=== PATIENT | female | born 1975 | race Caucasian/White ===

== ENCOUNTER → 2018-03-16 | Outpatient (CLI) | payer OTHER ==
--- NOTE | 2018-03-17 14:03 | MM ---
Reason for exam: screening (asymptomatic). Last mammogram was performed 5 years and 5 months ago. History: Patient is postmenopausal and history of endometrial cancer. Family history of breast cancer in maternal aunt, breast cancer in maternal grandmother, breast cancer in grandmother, and breast cancer in paternal aunt. Physical Findings: A clinical breast exam by your physician is recommended on an annual basis and results should be correlated with mammographic findings. MG Screening Mammo w CAD Bilateral CC and MLO view(s) were taken. Prior study comparison: October 21, 2012, bilateral digital screening mammo w/CAD. February 06, 2005, left breast special view mammogram. The breast tissue is heterogeneously dense. This may lower the sensitivity of mammography. Finding #1: There is a new 8 mm circumscribed oval mass in the outer quadrant, middle position of the left breast. Finding #2: There are typically benign round, regional calcifications in the right breast. ASSESSMENT: Incomplete: need additional imaging evaluation, BI-RAD 0 RECOMMENDATION: Ultrasound of the left breast. [facility] will attempt to contact patient to return for ultrasound.
== END | disposition home or self-care (01) ==
LOC: RADMAMWWP 13:40
PROVIDERS: ATTEND Family Medicine
DX: Z12.31 Encounter for screening mammogram for malignant neoplasm of breast (principal)
CPT/HCPCS: 77067

== ENCOUNTER → 2018-03-26 | Outpatient (CLI) | payer OTHER ==
--- NOTE | 2018-03-29 09:15 | USB ---
Reason for exam: additional evaluation requested from abnormal screening. History: Patient is postmenopausal and history of endometrial cancer. Family history of breast cancer in maternal aunt, breast cancer in maternal grandmother, breast cancer in grandmother, and breast cancer in paternal aunt. Physical Findings: Nurse Summary: areas of nodular tissue left upper outer quadrat, bilateral soft, nodular tissue, all movable (nurse ts). US Breast Workup Limited LT Technologist: Janice Quick RT (R)(M) Left limited breast ultrasound including focal area of concern, retroareolar and axilla demonstrates three oval, cystic lesions measuring 9 x 6 x 10mm at 1 o'clock, 13 x 9 x 6mm at 4 o'clock and 10 x 7 x 9mm at 2 o'clock. These results were verbally communicated with the patient and result sheet given to the patient on 03/26/18. ASSESSMENT: Benign, BI-RAD 2 RECOMMENDATION: Return to routine screening mammogram schedule for both breasts.
== END | disposition home or self-care (01) ==
LOC: RADUSWWP 08:47
PROVIDERS: ATTEND Family Medicine
DX: R92.8 Other abnormal and inconclusive findings on diagnostic imaging of breast (principal)

== ENCOUNTER 2021-11-15 09:30 | Emergency (ER) | payer OTHER ==
[2021-11-15] MEDS: MAG HYDROX/AL HYDROX/SIMETH 30 ML, HYOSCYAMINE ELIXIR 10 ML, LIDOCAINE VISCOUS 2% 10 ML PO STA ×3 (10:33)
[2021-11-15] MEDS: PANTOPRAZOLE 40 MG/10 ML VIAL IVP STA (10:33)
--- NOTE | 2021-11-15 10:34 | XR ---
EXAMINATION TYPE: XR chest 2V DATE OF EXAM: 11/15/2021 COMPARISON: NONE HISTORY: Chest pain TECHNIQUE: Frontal and lateral views of the chest are obtained. FINDINGS: There is no focal air space opacity. No evidence for pneumothorax. No pleural effusion. The cardiac silhouette size is within normal limits. The osseous structures are grossly intact. IMPRESSION: 1. No acute cardiopulmonary process.
[2021-11-15] MEDS: SODIUM CHLORIDE 0.9% 1,000 ML IV STA (10:37)
--- NOTE | 2021-11-15 10:46 | ED ---
Chest Pain HPI - General Chief Complaint: Chest Pain Stated Complaint: Chest Pain Source: patient Mode of arrival: ambulatory Limitations: no limitations - History of Present Illness Initial Comments: 6-year-old female presents emergency department reported chest pressure. He describes it as a pain over the left side of her chest which has been present since last night. Denies any provocative factors. Concern that it was gas therefore has been taking Tums without relief. Denies previous history of cardiac disease. No history of DVT or PE. No calf pain or swelling. No s ignificant family of cardiac disease. Patient is no longer a smoker. She denies ripping or tearing physician to her back. No nausea or vomiting. No shortness of breath. Denies fevers or cough. Denies any abdominal pain. No changes in her bowel or bladder habits. Reports that she was having some right anterior knee pain and therefore was taking Aleve and Motrin in heavy amounts last week. Has subsequently stopped and is no longer having the leg pain. No other alleviating, precipitating or modifying factors - Related Data Home Medications Medication Instructions Recorded Confirmed Sertraline HCl [Zoloft] 200 mg PO HS 05/06/18 11/15/21 Acetaminophen Tab [Tylenol Tab] 1,000 mg PO Q6HR PRN 11/15/21 11/15/21 Calcium Carbonate [Tums] 1,000 mg PO QID PRN 11/15/21 11/15/21 Ibuprofen [Advil] 400 mg PO Q8HR PRN 11/15/21 11/15/21 Naproxen Sodium [Aleve] 440 mg PO Q12H PRN 11/15/21 11/15/21 Polyethylene Glycol 3350 [Miralax] 17 gm PO DAILY PRN 11/15/21 11/15/21 buPROPion HCL [Wellbutrin XL] 300 mg PO HS 11/15/21 11/15/21 Previous Rx's Medication Instructions Recorded Famotidine [Pepcid] 20 mg PO BID #28 tablet 11/15/21 Omeprazole [PriLOSEC] 20 mg PO AC-BRKFST #14 cap 11/15/21 Sucralfate [Carafate] 1 gm PO ACHS #56 tab 11/15/21 Allergies Allergy/AdvReac Type Severity Reaction Status Date / Time sumatriptan [From Imitrex] Allergy Dyspnea Verified 11/15/21 10:48 sumatriptan succinate Allergy Dyspnea Verified 11/15/21 10:48 [From Imitrex] Review of Systems ROS Statement: Those systems with pertinent positive or pertinent negative responses have been documented in the HPI. ROS Other: All systems not noted in ROS Statement are negative. EKG Findings - EKG Comments: EKG Findings:: EKG demonstrates sinus rhythm with a rate of 74. Irritable 150. QRS 92. QTC of 336. No acute ST segment elevations or depressions Past Medical History Past Medical History: Cancer, Hyperlipidemia Additional Past Medical History / Comment(s): cervical cancer at 16, skin cancer found on back April 2018 History of Any Multi-Drug Resistant Organisms: None Reported Past Surgical History: Section, Hysterectomy, Orthopedic Surgery Additional Past Surgical History / Comment(s): OVARIES REMOVED, surgery on both ankles Past Anesthesia/Blood Transfusion Reactions: Postoperative Nausea & Vomiting (PONV) Past Psychological History: No Psychological Hx Reported Smoking Status: Never smoker Past Alcohol Use History: None Reported Past Drug Use History: None Reported - Past Family History Father Family Medical History: No Reported History Mother Family Medical History: Skin Disorder Additional Family Medical History / Comment(s): skin cancer (on face) General Exam Limitations: no limitations General appearance: alert, in no apparent distress Head exam: Present: atraumatic, normocephalic, normal inspection Eye exam: Present: normal appearance, PERRL, EOMI. Absent: scleral icterus, conjunctival injection, periorbital swelling ENT exam: Present: normal exam, mucous membranes moist Neck exam: Present: normal inspection. Absent: tenderness, meningismus, lymphadenopathy Respiratory exam: Present: normal lung sounds bilaterally. Absent: respiratory distress, wheezes, rales, rhonchi, stridor Cardiovascular Exam: Present: regular rate, normal rhythm, normal heart sounds. Absent: systolic murmur, diastolic murmur, rubs, gallop, clicks GI/Abdominal exam: Present: soft, normal bowel sounds. Absent: distended, tenderness, guarding, rebound, rigid Extremities exam: Present: normal inspection, full ROM, normal capillary refill. Absent: tenderness, pedal edema, joint swelling, calf tenderness Back exam: Present: normal inspection Neurological exam: Present: alert, oriented X3, CN II-XII intact Psychiatric exam: Present: normal affect, normal mood Skin exam: Present: warm, dry, intact, normal color. Absent: rash Course Vital Signs 11/15/21 11/15/21 11/15/21 09:32 10:37 11:43 Temperature 98.1 F 98.6 F Pulse Rate 79 72 67 Respiratory 18 18 16 Rate Blood Pressure 141/84 131/85 131/81 O2 Sat by Pulse 98 97 98 Oximetry 11/15/21 12:41 Temperature 98.6 F Pulse Rate 73 Respiratory 18 Rate Blood Pressure 133/84 O2 Sat by Pulse 98 Oximetry Chest Pain MDM - MDM Upon arrival patient is placed into room 5. A thorough history and physical exam was performed. Patient placed on continuous pulse ox and cardiac monitoring. 12-lead EKG is obtained which demonstrates no acute ST segment elevation. IV is established and laboratory studies are conducted. Patient does go for a chest x-ray. Review of the patient's labs demonstrated a negative d-dimer. Troponin is negative. Chest x-ray demonstrates no acute process. Results are discussed the patient. She was given a GI cocktail and Protonix. She continues to have epigastric pain and therefore I did recommend admission for further cardiac workup. Patient refused stating that she wanted to go home. She is aware of the risks of leaving without further evaluation. The limitations of the ER work up are discussed. Patient's adamant that she wants to go home. Will follow-up in the outpatient setting for further evaluation. Do believe that the patient needs a full cardiac workup to include Holter monitor, stress test and an echo. Would also benefit from GI consultation with possible EGD and HIDA scan. Patient understood. If she has any new or worsening symptoms recommended to come back to the emergency room. Patient discharged home in stable condition Disposition Clinical Impression: Chest pain Disposition: HOME SELF-CARE Condition: Stable Instructions (If sedation given, give patient instructions): Chest Pain (ED) Additional Instructions: I did recommend admission. You do need a further cardiac workup to include an echo, stress test and Holter monitoring. [facility] for [facility]. I also think you need further workup of your GI tract to include an EGD and possible HIDA scan. You may see Dr. Ruiz for these concerns. Take the medications prescribed as directed and please return to the hospital for any new or worsening symptoms or you do agree to admission. Prescriptions: Sucralfate [Carafate] 1 gm PO ACHS #56 tab Famotidine [Pepcid] 20 mg PO BID #28 tablet Omeprazole [PriLOSEC] 20 mg PO AC-BRKFST #14 cap Is patient prescribed a controlled substance at d/c from ED?: No Referrals: Gordo Carmen DO [Primary Care Provider] - 1-2 days Brenda Ruiz MD [STAFF PHYSICIAN] - 1-2 days [facility] [Provider Group] - 1-2 days Time of Disposition: 12:19
[2021-11-15 11:06] LABS: ALT 16 U/L (4-34); AST 21 U/L (14-36); African American GFR (CKD) >90 (>60 ml/min/1.73 sqM); Albumin 4.6 g/dL (3.5-5.0); Alkaline Phosphatase 67 U/L (38-126); Anion Gap 10 mmol/L; Blood Urea Nitrogen 15 mg/dL (7-17); Calcium 9.9 mg/dL (8.4-10.2); Carbon Dioxide 21 mmol/L (22-30); Chloride 104 mmol/L (98-107); Glucose 96 mg/dL (74-99); Lipase 89 U/L (23-300); Magnesium 1.9 mg/dL (1.6-2.3); Non-African American GFR(CKD) >90 (>60 ml/min/1.73 sqM); Potassium 4.3 mmol/L (3.5-5.1); Sodium 135 mmol/L (137-145); Total Bilirubin 0.6 mg/dL (0.2-1.3); Total Protein 7.6 g/dL (6.3-8.2)
[2021-11-15 11:08] LABS: Basophils # (A) 0.1 k/uL (0-0.2); Basophils % (A) 1 %; Eosinophils # (A) 0.1 k/uL (0-0.7); Eosinophils % (A) 1 %; HCT 42.2 % (34.0-46.0); HGB 14.4 gm/dL (11.4-16.0); Lymphocytes # (A) 1.9 k/uL (1.0-4.8); Lymphocytes % (A) 19 %; MCH 30.9 pg (25.0-35.0); MCHC 34.2 g/dL (31.0-37.0); MCV 90.2 fL (80.0-100.0); Mean Platelet Volume 7.5; Monocytes # (A) 0.4 k/uL (0-1.0); Monocytes % (A) 4 %; Neutrophils # (A) 7.7 k/uL (1.3-7.7); Neutrophils % (A) 75 %; Platelet Count 370 k/uL (150-450); RBC 4.67 m/uL (3.80-5.40); RDW 12.7 % (11.5-15.5); WBC 10.2 k/uL (3.8-10.6)
[2021-11-15 11:10] LABS: INR 0.9 (<1.2)
[2021-11-15 11:11] LABS: Partial Thromboplastin Time 23.3 sec (22.0-30.0); Prothrombin Time 10.1 sec (9.0-12.0)
[2021-11-15 11:49] VITALS: TEMP 98.6
[2021-11-15 12:49] VITALS: BP 133/84; PULSE 73; RESP 18
== END 2021-11-15 12:41 | disposition home or self-care (01) ==
LOC: EC 09:30
DX: R07.9 Chest pain, unspecified (principal); E78.5 Hyperlipidemia, unspecified
CPT/HCPCS: 36415; 93005; 85379; 80053; 83690; 83735; 84484; 85025; 85610; 85730; 71046; 99285; 96374; 96361; C9113

== ENCOUNTER 2021-12-03 08:16 | Day surgery (SDC) | payer OTHER ==
[2021-11-29 12:33] VITALS: BMI 26.9
[~2021-12-03 08:16] MED LIST: LACTATED RINGERS 1,000 ML IV SCH
[2021-12-03 09:05] VITALS: TEMP 98.7
[2021-12-03] MEDS ORDERED: LIDOCAINE 1% INJ 10MG/ML (20 ML MDV) ONE (10:16)
[2021-12-03] MEDS ORDERED: PROPOFOL 10 MG/ML 20 ML VIAL IV ONE (10:16)
--- NOTE | 2021-12-03 10:22 | P.PCN ---
Date of Procedure: 12/03/21 Procedure(s) Performed: BRIEF HISTORY: Patient is a 46-year-old, pleasant, to female scheduled for an upper endoscopy as a part of evaluation of atypical chest pain for the last few weeks duration.. She is presently on omeprazole 20 mg twice daily and Pepcid at bedtime and symptoms are gradually improving. PROCEDURE PERFORMED: Esophagogastroduodenoscopy with biopsy. PREOPERATIVE DIAGNOSIS:. Atypical chest pain of 2 weeks duration. IV sedation per anesthesia. PROCEDURE: After informed consent was obtained, the patient was brought into the endoscopy unit. IV sedation was administered by Anesthesia under continuous monitoring. Initially the Olympus GIF-140 video endoscope was inserted into the mouth. Esophagus intubated without any difficulty. It was gradually advanced into the stomach and duodenum and carefully examined. The bulb and the second part of the duodenum appeared normal. The scope at this time was withdrawn to the stomach, adequately insufflated with air, and upon careful examination, mucosa of the antrum, had several scattered erosions and biopsies were done from this area. The body, cardia and the fundus appeared normal. The scope was then withdrawn into the esophagus. The GE junction was located at 39 cm from the incisors. It appeared slightly irregular but there was no evidence of Burton's esophagus. The esophagus appeared normal. There were no erosions or ulcerations seen and biopsies were done from the distal esophagus and the patient tolerated the procedure well. IMPRESSION: 1. Antral erosive gastritis. 2. No evidence of esophagitis or peptic ulcer disease. RECOMMENDATIONS: The findings of this examination were discussed with the patient as well as her family. She was advised to follow with the biopsy results. In the meantime she will continue with omeprazole 20 mg twice daily and Pepcid at bedtime and follow antireflux measures..
[2021-12-03] MEDS ORDERED: FAMOTIDINE 20 MG/2 ML VIAL IVP ONE (10:59)
[2021-12-03 11:20] VITALS: BP 117/72; PULSE 64; RESP 18
== END 2021-12-03 11:36 | disposition home or self-care (01) ==
LOC: ORWHC2ENDO 08:16
PROVIDERS: ATTEND Internal Medicine Gastroenterology
DX: K29.50 Unspecified chronic gastritis without bleeding (principal); K29.60 Other gastritis without bleeding; Z79.1 Long term (current) use of non-steroidal anti-inflammatories (NSAID); Z79.899 Other long term (current) drug therapy; Z88.8 Allergy status to other drugs, medicaments and biological substances; Z87.891 Personal history of nicotine dependence; E78.5 Hyperlipidemia, unspecified; G43.909 Migraine, unspecified, not intractable, without status migrainosus; K21.9 Gastro-esophageal reflux disease without esophagitis; Z90.710 Acquired absence of both cervix and uterus; Z85.41 Personal history of malignant neoplasm of cervix uteri
CPT/HCPCS: 88305; 88342; 43239; J2001; J2704

== ENCOUNTER → 2022-01-06 | Outpatient (CLI) | payer OTHER ==
--- NOTE | 2022-01-06 11:15 | P.STRESS ---
- Stress Test Note Stress Test Results/Findings: Exam Performed: stress echo exercise Exam Date: 01/06/22 Reason for Exam: Chest pain Height: 6 ft Weight: 90.718 kg Protocol: Rod Stage: III Duration of Exercise: 8:28 Resting Heart Rate: 74 Resting Blood Pressure: 146/88 Maximum Achieved Heart Rate: 149 Maximum Achieved Blood Pressure: 204/68 85% PMHR: 147 100% PMHR: 173 METS: 9.7 Technologist Comment: Stress Test Results/Findings: This is a 46-year-old female with history of smoking and hypercholesterolemia being evaluated for cardiac status. Patient has history of chest pain, hypercholesterolemia and smoking Stress data: Baseline EKG showed sinus rhythm with normal CO and QRS duration. Blood pressure at rest is 145/88. Patient walked on the Rod protocol for about 7 minutes achieving a maximal rate of 149 with a blood pressure of 204/68. EKGs taken during and after exercise showed mild J-point depression with upsloping segments in the inferolateral leads which are not diagnostic for ischemia. Echo data: Baseline echo images show normal wall motion and thickening. Exercise echo images showed augmentation of the wall motion and thickening in all the segments. Final impression: #1. Negative stress test #2. Negative stress echo.
--- NOTE | 2022-01-08 08:40 | ECHOS ---
Stress Test Results/Findings: Exam Performed: stress echo exercise Exam Date: 01/06/22 Reason for Exam: Chest pain Height: 6 ft Weight: 90.718 kg Protocol: Rod Stage: III Duration of Exercise: 8:28 Resting Heart Rate: 74 Resting Blood Pressure: 146/88 Maximum Achieved Heart Rate: 149 Maximum Achieved Blood Pressure: 204/68 85% PMHR: 147 100% PMHR: 173 METS: 9.7 Technologist Comment: Stress Test Results/Findings: This is a 46-year-old female with history of smoking and hypercholesterolemia being evaluated for cardiac status. Patient has history of chest pain, hypercholesterolemia and smoking Stress data: Baseline EKG showed sinus rhythm with normal MO and QRS duration. Blood pressure at rest is 145/88. Patient walked on the Rod protocol for about 7 minutes achieving a maximal rate of 149 with a blood pressure of 204/68. EKGs taken during and after exercise showed mild J-point depression with upsloping segments in the inferolateral leads which are not diagnostic for ischemia. Echo data: Baseline echo images show normal wall motion and thickening. Exercise echo images showed augmentation of the wall motion and thickening in all the segments. Final impression: #1. Negative stress test #2. Negative stress echo. SANDRA
== END | disposition home or self-care (01) ==
LOC: RADNMMAIN 09:36
PROVIDERS: ATTEND Family Medicine
DX: R07.89 Other chest pain (principal)
CPT/HCPCS: 93351

== ENCOUNTER 2023-01-09 22:12 | Emergency (ER) | payer OTHER ==
[2023-01-09] MEDS ORDERED: levETIRAcetam IV 2,000 MG in SODIUM CHLORIDE 0.9% 250 ML IVPB ONE (22:20)
[2023-01-09 22:25] VITALS: TEMP 96.9
[2023-01-09 22:29] LABS: Glucose,Whole Blood 173 mg/dL (70-110)
[2023-01-09] MEDS ORDERED: niCARdipine 20 MG in SODIUM CHLORIDE 0.9% 192 ML IV SCH (22:30)
--- NOTE | 2023-01-09 22:30 | ED ---
General Adult HPI - General Stated complaint: Stroke-like symptoms, Seizure Time Seen by Provider: 01/09/23 22:18 Source: EMS, RN notes reviewed, old records reviewed Mode of arrival: EMS - History of Present Illness Initial comments: Patient is a 47-year-old female with past medical history remarkable for cervical cancer at age 16, history of migraine headaches who presents emergency Department via EMS over concern for stroke. Earlier today per EMS who provides all the patient's history patient was having the worst headache of her life. They obtained history from the patient's . She is complaining of this worst headache of her life throughout the day. Presently 30 minutes prior to arrival in the emergency department, patient fell onto the ground in the bathroom. She was having slurred and jumbled speech per . Also had some weakness on the right side. When EMS arrived, patient was having generalized tonic-clonic movements present seizure. Since that time, patient has been somewhat lethargic. She rises to minimal stimulation. Is not moving her right upper extremity. Does have movement of the other 3 extremities but is unable to follow commands. No usable speech. Presents for further evaluation at this time. Not on blood thinners. No known trauma. - Related Data Home Medications Medication Instructions Recorded Confirmed Sertraline HCl [Zoloft] 200 mg PO HS 05/06/18 12/03/21 Acetaminophen Tab [Tylenol Tab] 1,000 mg PO Q6HR PRN 11/15/21 12/03/21 Ibuprofen [Advil] 400 mg PO Q8HR PRN 11/15/21 12/03/21 Naproxen Sodium [Aleve] 440 mg PO Q12H PRN 11/15/21 12/03/21 buPROPion HCL [Wellbutrin XL] 300 mg PO HS 11/15/21 12/03/21 polyethylene glycoL 3350 [Miralax] 17 gm PO DAILY PRN 11/15/21 12/03/21 Famotidine [Pepcid] 20 mg PO HS 11/29/21 12/03/21 Previous Rx's Medication Instructions Recorded Omeprazole [PriLOSEC] 20 mg PO AC-BRKFST #14 cap 11/15/21 Sucralfate [Carafate] 1 gm PO ACHS #56 tab 11/15/21 Allergies Allergy/AdvReac Type Severity Reaction Status Date / Time sumatriptan [From Imitrex] Allergy Dyspnea Verified 12/03/21 08:57 sumatriptan succinate Allergy Dyspnea Verified 12/03/21 08:57 [From Imitrex] Review of Systems ROS Statement: Those systems with pertinent positive or pertinent negative responses have been documented in the HPI. ROS Other: All systems not noted in ROS Statement are negative. Past Medical History Past Medical History: Cancer, Hyperlipidemia, Osteoarthritis (OA) Additional Past Medical History / Comment(s): cervical cancer at 16, migraine headaches, skin cancer on back, pain in throat/upper chest area for about a week, seen in EC, no cardiac problem found per pt. History of Any Multi-Drug Resistant Organisms: None Reported Past Surgical History: Section, Hysterectomy, Orthopedic Surgery Additional Past Surgical History / Comment(s): OVARIES REMOVED, surgery on both ankles Past Anesthesia/Blood Transfusion Reactions: Motion Sickness, Postoperative Nausea & Vomiting (PONV) Smoking Status: Former smoker - Past Family History Father Family Medical History: No Reported History Mother Family Medical History: Skin Disorder Additional Family Medical History / Comment(s): skin cancer (on face) General Exam - General Exam Comments Initial Comments: General: Patient is lying in the bed, collecting spit at the mouth looking around the room confused. HEAD: Normal with no signs of head trauma. EYES: PERRLA, EOMI, conjunctiva normal, no discharge. Pupils 3 mm and equal bilaterally. ENT: Hearing grossly intact, normal oropharynx. RESPIRATORY: Clear breath sounds bilaterally. No wheezes, rales, or rhonchi. C/V: Regular rate and rhythm. S1 and S2 auscultated, no edema, peripheral pulses 2+ and intact throughout ABD: Abd is soft, nontender, nondistended EXT: Normal range of motion, no obvious deformity SKIN: No rashes or lesions observed on exposed skin. NEURO: Alert but not oriented. Difficult to obtain a reliable neurological exam at this time. NIH is approximately 13 at this time, with 2 points for being mute for dysarthria, 2 points for being mute for aphasia, ataxia in the right upper extremity one point, no movement in the right upper extremity for 4 points, aphasic for a month and age 1, arouses to minor stimulation for 1 point. Course Vital Signs 04/21/23 04/21/23 04/21/23 22:14 22:57 23:13 Temperature 96.9 F L Pulse Rate 68 94 Respiratory 15 14 Rate Blood Pressure 132/85 142/95 O2 Sat by Pulse 96 95 Oximetry Fraction of 100 Inspired Oxygen (FIO2) 01/09/23 01/09/23 01/10/23 23:15 23:38 00:05 Temperature Pulse Rate 71 69 67 Respiratory 16 16 20 Rate Blood Pressure 142/88 158/84 143/78 O2 Sat by Pulse 99 97 97 Oximetry Fraction of Inspired Oxygen (FIO2) 01/10/23 01/10/23 00:15 00:43 Temperature Pulse Rate 71 73 Respiratory 16 16 Rate Blood Pressure 122/66 137/80 O2 Sat by Pulse 96 98 Oximetry Fraction of Inspired Oxygen (FIO2) Procedures - Intubation Sedative: Etomidate Mg Given: 30 Paralytic: Rocuronium Mg Given: 60 Laryngoscope: other (Glidescope) Size: 4 ET Tube Size: 7.5 Tube Secured Depth (cm): 23 Tube Secured Location: lips Tube Placement Confirmation: visualized tube passing through cords, equal breath sounds bilaterally, confirmation by capnometry Patient Tolerated Procedure: well Medical Decision Making - Medical Decision Making Was pt. sent in by a medical professional or institution (Dr. PA, CONVEYOR MAINTENANCE MECHANIC, urgent care, hospital, or shelter...) When possible be specific @ -No Did you speak to anyone other than the patient for history (EMS, parent, family, police, friend...)? What history was obtained from this source @ -No Did you review nursing and triage notes (agree or disagree)? Why? @ -I reviewed and agree with nursing and triage notes Were old charts reviewed (outside hosp., previous admission, EMS record, old EKG, old radiological studies, urgent care reports/EKG's, shelter records)? Report findings @ -No old charts were reviewed Differential Diagnosis (chest pain, altered mental status, abdominal pain women, abdominal pain men, vaginal bleeding, weakness, fever, dyspnea, syncope, headache, dizziness, GI bleed, back pain, seizure, CVA, palpatations, mental health, musculoskeletal)? @ -Differential CVA Ischemic stroke, hemorrhagic stroke, brain tumor, atypical migraine, Wernicke's encephalopathy, seizure, multiple sclerosis, meningitis, encephalitis, hypoglycemia, Guillain-Cervantes, electrolytes disturbance, myasthenia gravis.... This is not meant to be an all-inclusive list EKG interpreted by me (3pts min.). @ -As above X-rays interpreted by me (1pt min.). @ -Chest x-ray reveals no obvious acute cardio pulmonary process CT interpreted by me (1pt min.). @ -CT brain reveals a significant left intraparenchymal hemorrhage. CT angiogram of the brain is pending. U/S interpreted by me (1pt. min.). @ -None done What testing was considered but not performed or refused? (CT, X-rays, U/S, labs)? Why? @ -None What meds were considered but not given or refused? Why? @ -None Did you discuss the management of the patient with other professionals (professionals i.e. , PA, CONVEYOR MAINTENANCE MECHANIC, lab, RT, psych nurse, social science manager, planer mill grader, teacher, classification officer, embedded case manager)? Give summary @ -No Was smoking cessation discussed for >3mins.? @ -No Was critical care preformed (if so, how long)? @ -No Were there social determinants of health that impacted care today? How? (Homelessness, low income, unemployed, alcoholism, drug addiction, tra nsportation, low edu. Level, literacy, decrease access to med. care, [facility], rehab)? @ -No Was there de-escalation of care discussed even if they declined (Discuss DNR or withdrawal of care, Hospice)? DNR status @ -No What co-morbidities impacted this encounter? (DM, HTN, Smoking, COPD, CAD, Cancer, CVA, ARF, Chemo, Hep., AIDS, mental health diagnosis, sleep apnea, morbid obesity)? @ -None Was patient admitted / discharged? Hospital course, mention meds given and route, prescriptions, significant lab abnormalities, going to OR and other pertinent info. @ -Based on the patient's presentation and physical exam, there is concern for a significant panel process for the patient this time. She is protecting her airway. Vital signs within acceptable limits. Code stroke will be activated at 22:20. She is not a TPA candidate she did have seizure-like activity and I do suspect a brain bleed at this time. Patient is a suspected stroke. . Patient empirically dosed 2 g of IV Keppra. HOB will be maintained at 30. CT brain reveals a large left intraparenchymal hemorrhage with what appears to be 8 mm midline shift. At 22:34 Dr. Barrera of neurocrit care called back and stated he will review imaging and call back. Patient's blood pressure is adequate at this time but we will empirically order Cardene, as well as provide the patient with 50 g of IV mannitol due to the midline shift. Patient also receive TXA. Patient pending transfer. Patient successfully intubated for airway protection with Glyde scope with 7.5 ET tube. An NG tube was placed. Patient placed on propofol drip for sedation as well as secondary blood pressure control. Vital signs postintubation were pressure 142/88, saturating 99% on baseline vent settings, with pulses 71. Post intubation chest x-ray reveals adequate placement of a OG-tube as well as ET tube. Patient in total received IV mannitol for the shift 50 g total. Patient also received IV TXA will be started on IV drip of TXA. Patient is on propofol drip for sedation blood pressure control. Also will be sent with a Cardene drip for blood pressure control. Patient also received IV Keppra for seizure prophy laxis. Blood pressure is well-controlled at this time. Awaiting transfer.Patient's laboratory studies returned remarkable for normal coags. Leukocytosis mild at 12.9. Indeterminate troponin of 0.020. Mcdowell catheter was placed. CT angiogram revealed no evidence of stenosis or aneurysm. I did speak with radiology ablates is likely hypertensive bleed. Dr. Barrera called back at 2308, and he reviewed the CT angiogram requested patient be transferred to [facility] for further management. No aneurysm for him to intervene at [facility]. Patient be transferred to [facility]. Transfer process was initiated with [facility] at 2311. Patient was accepted at approximately [address] Montelongo in the emergency department. Patient will be transferred in critical condition. EMS was I did speak with the patient's and updated him on the patient's critical condition. He does express understanding. No significant mental status change since intubation. There was a long delay in transfer process, as it did take EMS longer than originally planned to arrive at the emergency department to the original ETA of approximately 30 minutes after phone call for arrival at our facility at approximately midnight. This is despite us pre-notifying them of the pending transfer at 22:44. When they did arrive after midnight, as they were about to put the patient on the stretcher, patient became more agitated, and the EMS were requesting additional sedation in addition to the propofol. Therefore fentanyl drip and fentanyl push were both ordered at 0009 but this did take time to obtain from pharmacy as well, contributing to the delay overall in transferring the patient. Undiagnosed new problem with uncertain prognosis? @ -No Drug Therapy requiring intensive monitoring for toxicity (Heparin, Nitro, Insulin, Cardizem)? @ -No Were any procedures done? @ -No Diagnosis/symptom? @ -Acute intracranial hemorrhage with midline shift Acute, or Chronic, or Acute on Chronic? @ -Acute Uncomplicated (without systemic symptoms) or Complicated (systemic symptoms)? @ -Complicated Side effects of treatment? @ -none Exacerbation, Progression, or Severe Exacerbation] @ -no Poses a threat to life or bodily function? @ -Yes Diagnosis/symptom? @ -Intubation for airway protection Acute, or Chronic, or Acute on Chronic? @ -Acute Uncomplicated (without systemic symptoms) or Complicated (systemic symptoms)? @ -Complicated Side effects of treatment? @ -[none] Exacerbation, Progression, or Severe Exacerbation] @ -[no] Poses a threat to life or bodily function? @ -[no] - Lab Data Result diagrams: 01/09/23 22:25 01/09/23 22:25 Lab Results 01/09/23 01/09/23 01/09/23 Range/Units 22:17 22:25 22:25 WBC 12.9 H (3.8-10.6) k/uL RBC 4.58 (3.80-5.40) m/uL Hgb 13.4 (11.4-16.0) gm/dL Hct 40.8 (34.0-46.0) % MCV 89.1 (80.0-100.0) fL MCH 29.3 (25.0-35.0) pg MCHC 32.9 (31.0-37.0) g/dL RDW 13.0 (11.5-15.5) % Plt Count 399 (150-450) k/uL MPV 7.4 Neutrophils % 76 % Lymphocytes % 18 % Monocytes % 4 % Eosinophils % 1 % Basophils % 0 % Neutrophils # 9.9 H (1.3-7.7) k/uL Lymphocytes # 2.3 (1.0-4.8) k/uL Monocytes # 0.5 (0-1.0) k/uL Eosinophils # 0.1 (0-0.7) k/uL Basophils # 0.0 (0-0.2) k/uL PT 10.0 (9.0-12.0) sec INR 0.9 (<1.2) APTT 21.4 L (22.0-30.0) sec Sodium (137-145) mmol/L Potassium (3.5-5.1) mmol/L Chloride (98-107) mmol/L Carbon Dioxide (22-30) mmol/L Anion Gap mmol/L BUN (7-17) mg/dL Creatinine (0.52-1.04) mg/dL Est GFR (CKD-EPI)AfAm (>60 ml/min/1.73 sqM) Est GFR (CKD-EPI)NonAf (>60 ml/min/1.73 sqM) Glucose (74-99) mg/dL POC Glucose (mg/dL) 173 H (70-110) mg/dL POC Glu Sql Server Architect ID Andrade Holm Plasma Lactic Acid Mani (0.7-2.0) mmol/L Calcium (8.4-10.2) mg/dL Total Bilirubin (0.2-1.3) mg/dL AST (14-36) U/L ALT (4-34) U/L Alkaline Phosphatase (38-126) U/L Ammonia (<30) umol/L Creatine Kinase (30-135) U/L Troponin I (0.000-0.034) ng/mL Total Protein (6.3-8.2) g/dL Albumin (3.5-5.0) g/dL Urine Color Urine Appearance (Clear) Urine pH (5.0-8.0) Ur Specific [place] (1.001-1.035) Urine Protein (Negative) Urine Glucose (UA) (Negative) Urine Ketones (Negative) Urine Blood (Negative) Urine Nitrite (Negative) Urine Bilirubin (Negative) Urine Urobilinogen (<2.0) mg/dL Ur Leukocyte Esterase (Negative) Urine RBC (0-5) /hpf Urine WBC (0-5) /hpf Ur Squamous Epith Cells (0-4) /hpf Urine Mucus (None) /hpf Urine HCG, Qual (Not Detectd) Urine Opiates Screen (NotDetected) Ur Oxycodone Screen (NotDetected) Urine Methadone Screen (NotDetected) Ur Propoxyphene Screen (NotDetected) Ur Barbiturates Screen (NotDetected) U Tricyclic Antidepress (NotDetected) Ur Phencyclidine Scrn (NotDetected) Ur Amphetamines Screen (NotDetected) U Methamphetamines Scrn (NotDetected) U Benzodiazepines Scrn (NotDetected) Urine Cocaine Screen (NotDetected) U Marijuana (THC) Screen (NotDetected) 01/09/23 01/09/23 01/09/23 Range/Units 22:25 22:25 22:25 WBC (3.8-10.6) k/uL RBC (3.80-5.40) m/uL Hgb (11.4-16.0) gm/dL Hct (34.0-46.0) % MCV (80.0-100.0) fL MCH (25.0-35.0) pg MCHC (31.0-37.0) g/dL RDW (11.5-15.5) % Plt Count (150-450) k/uL MPV Neutrophils % % Lymphocytes % % Monocytes % % Eosinophils % % Basophils % % Neutrophils # (1.3-7.7) k/uL Lymphocytes # (1.0-4.8) k/uL Monocytes # (0-1.0) k/uL Eosinophils # (0-0.7) k/uL Basophils # (0-0.2) k/uL PT (9.0-12.0) sec INR (<1.2) APTT (22.0-30.0) sec Sodium 137 (137-145) mmol/L Potassium 3.6 (3.5-5.1) mmol/L Chloride 106 (98-107) mmol/L Carbon Dioxide 19 L (22-30) mmol/L Anion Gap 12 mmol/L BUN 14 (7-17) mg/dL Creatinine 0.63 (0.52-1.04) mg/dL Est GFR (CKD-EPI)AfAm >90 (>60 ml/min/1.73 sqM) Est GFR (CKD-EPI)NonAf >90 (>60 ml/min/1.73 sqM) Glucose 178 H (74-99) mg/dL POC Glucose (mg/dL) (70-110) mg/dL POC Glu Sql Server Architect ID Plasma Lactic Acid Mani 1.1 (0.7-2.0) mmol/L Calcium 8.7 (8.4-10.2) mg/dL Total Bilirubin 0.5 (0.2-1.3) mg/dL AST 18 (14-36) U/L ALT 13 (4-34) U/L Alkaline Phosphatase 59 (38-126) U/L Ammonia <9 (<30) umol/L Creatine Kinase 31 (30-135) U/L Troponin I 0.020 (0.000-0.034) ng/mL Total Protein 6.6 (6.3-8.2) g/dL Albumin 4.1 (3.5-5.0) g/dL Urine Color Urine Appearance (Clear) Urine pH (5.0-8.0) Ur Specific [place] (1.001-1.035) Urine Protein (Negative) Urine Glucose (UA) (Negative) Urine Ketones (Negative) Urine Blood (Negative) Urine Nitrite (Negative) Urine Bilirubin (Negative) Urine Urobilinogen (<2.0) mg/dL Ur Leukocyte Esterase (Negative) Urine RBC (0-5) /hpf Urine WBC (0-5) /hpf Ur Squamous Epith Cells (0-4) /hpf Urine Mucus (None) /hpf Urine HCG, Qual (Not Detectd) Urine Opiates Screen (NotDetected) Ur Oxycodone Screen (NotDetected) Urine Methadone Screen (NotDetected) Ur Propoxyphene Screen (NotDetected) Ur Barbiturates Screen (NotDetected) U Tricyclic Antidepress (NotDetected) Ur Phencyclidine Scrn (NotDetected) Ur Amphetamines Screen (NotDetected) U Methamphetamines Scrn (NotDetected) U Benzodiazepines Scrn (NotDetected) Urine Cocaine Screen (NotDetected) U Marijuana (THC) Screen (NotDetected) 01/09/23 01/09/23 Range/Units 23:28 23:28 WBC (3.8-10.6) k/uL RBC (3.80-5.40) m/uL Hgb (11.4-16.0) gm/dL Hct (34.0-46.0) % MCV (80.0-100.0) fL MCH (25.0-35.0) pg MCHC (31.0-37.0) g/dL RDW (11.5-15.5) % Plt Count (150-450) k/uL MPV Neutrophils % % Lymphocytes % % Monocytes % % Eosinophils % % Basophils % % Neutrophils # (1.3-7.7) k/uL Lymphocytes # (1.0-4.8) k/uL Monocytes # (0-1.0) k/uL Eosinophils # (0-0.7) k/uL Basophils # (0-0.2) k/uL PT (9.0-12.0) sec INR (<1.2) APTT (22.0-30.0) sec Sodium (137-145) mmol/L Potassium (3.5-5.1) mmol/L Chloride (98-107) mmol/L Carbon Dioxide (22-30) mmol/L Anion Gap mmol/L BUN (7-17) mg/dL Creatinine (0.52-1.04) mg/dL Est GFR (CKD-EPI)AfAm (>60 ml/min/1.73 sqM) Est GFR (CKD-EPI)NonAf (>60 ml/min/1.73 sqM) Glucose (74-99) mg/dL POC Glucose (mg/dL) (70-110) mg/dL POC Glu Sql Server Architect ID Plasma Lactic Acid Mani (0.7-2.0) mmol/L Calcium (8.4-10.2) mg/dL Total Bilirubin (0.2-1.3) mg/dL AST (14-36) U/L ALT (4-34) U/L Alkaline Phosphatase (38-126) U/L Ammonia (<30) umol/L Creatine Kinase (30-135) U/L Troponin I (0.000-0.034) ng/mL Total Protein (6.3-8.2) g/dL Albumin (3.5-5.0) g/dL Urine Color Light Yellow Urine Appearance Clear (Clear) Urine pH 6.0 (5.0-8.0) Ur Specific [place] >1.050 H (1.001-1.035) Urine Protein 1+ H (Negative) Urine Glucose (UA) Negative (Negative) Urine Ketones 1+ H (Negative) Urine Blood Small H (Negative) Urine Nitrite Negative (Negative) Urine Bilirubin Negative (Negative) Urine Urobilinogen <2.0 (<2.0) mg/dL Ur Leukocyte Esterase Negative (Negative) Urine RBC 22 H (0-5) /hpf Urine WBC 3 (0-5) /hpf Ur Squamous Epith Cells <1 (0-4) /hpf Urine Mucus Rare H (None) /hpf Urine HCG, Qual Not Detected (Not Detectd) Urine Opiates Screen Not Detected (NotDetected) Ur Oxycodone Screen Not Detected (NotDetected) Urine Methadone Screen Not Detected (NotDetected) Ur Propoxyphene Screen Not Detected (NotDetected) Ur Barbiturates Screen Not Detected (NotDetected) U Tricyclic Antidepress Not Detected (NotDetected) Ur Phencyclidine Scrn Not Detected (NotDetected) Ur Amphetamines Screen Not Detected (NotDetected) U Methamphetamines Scrn Not Detected (NotDetected) U Benzodiazepines Scrn Not Detected (NotDetected) Urine Cocaine Screen Not Detected (NotDetected) U Marijuana (THC) Screen Detected H (NotDetected) - EKG Data -: EKG Interpreted by Me EKG Comments: 12-lead Electrocardiogram Interpretation Note EKG was reviewed and interpreted by myself. 12-lead ECG performed at 2215 is interpreted by me as revealing normal sinus rhythm at a rate of 70 beats per minute. [place] is normal. MI interval is 204 ms, QRS duration is 97 ms, QTc is 423 ms.. There were no ST or T wave abnormalities to suggest myocardial ischemia or injury. R wave progression across the precordium was satisfactory. By my interpretation this EKG is non-diagnostic for acute ischemia. Critical Care Time Critical Care Time: Yes Total Critical Care Time: 45 Critical Care Time: Upon my evaluation, this patient had a high probability of imminent or life- threatening deterioration due to a intracranial hemorrhage, which required my direct attention, intervention, and personal management. I have personally provided 45 minutes of critical care time exclusive of time spent on separately billable procedures. Time includes review of laboratory data, radiology results, discussion with consultants, and monitoring for potential decompensation. Interventions were performed as documented in my note. Disposition Clinical Impression: Intracranial hemorrhage, Intubation of airway performed without difficulty Disposition: OTHER INSTITUTION NOT DEFINED Condition: Critical Referrals: None,Stated [REFERRING] - 1-2 days Time of Disposition: 23:25 - Out of Hospital Transfer - Req. Specs Out of Hospital Transfer - Requested Specifics: Other Emergency Center ([facility] to [facility] in critical condition for escalation of care for intracranial hemorrhage.)
[2023-01-09] MEDS ORDERED: ROCURONIUM 10 MG/ML (5 ML VIAL) IV STA (22:38)
[2023-01-09] MEDS ORDERED: ETOMIDATE 2 MG/ML 10 ML VIAL IVP STA (22:38)
--- NOTE | 2023-01-09 22:40 | XR ---
EXAMINATION TYPE: XR chest 1V portable DATE OF EXAM: 01/09/2023 10:25 PM COMPARISON: Chest radiographs from 11/15/2021 TECHNIQUE: XR chest 1V portable Frontal view of the chest. CLINICAL INDICATION:Female, 47 years old with history of altered mental status; FINDINGS: Rotated exam. Lungs/Pleura: There is no evidence of pleural effusion, focal consolidation, or pneumothorax. Pulmonary vascularity: Unremarkable. Heart/mediastinum: Cardiomediastinal silhouette is unremarkable. Musculoskeletal: No acute osseous pathology. IMPRESSION: Low lung volumes with a generalized hazy appearance which could represent atelectasis versus pulmonar y edema correlate with serum BNP.
[2023-01-09 22:43] LABS: Basophils % (A) 0 %; Eosinophils # (A) 0.1 k/uL (0-0.7); Eosinophils % (A) 1 %; HCT 40.8 % (34.0-46.0); HGB 13.4 gm/dL (11.4-16.0); Lymphocytes # (A) 2.3 k/uL (1.0-4.8); Lymphocytes % (A) 18 %; MCH 29.3 pg (25.0-35.0); MCHC 32.9 g/dL (31.0-37.0); MCV 89.1 fL (80.0-100.0); Mean Platelet Volume 7.4; Monocytes # (A) 0.5 k/uL (0-1.0); Monocytes % (A) 4 %; Neutrophils # (A) 9.9 k/uL (1.3-7.7); Neutrophils % (A) 76 %; Platelet Count 399 k/uL (150-450); RBC 4.58 m/uL (3.80-5.40); WBC 12.9 k/uL (3.8-10.6)
[2023-01-09] MEDS ORDERED: MANNITOL 25% 12.5 GM/50 ML VIAL IVP STA (22:43)
--- NOTE | 2023-01-09 22:47 | CT ---
EXAMINATION TYPE: CT brain wo con CT DLP: 1256.6 mGycm, Automated exposure control for dose reduction was used. DATE OF EXAM: 01/09/2023 10:43 PM COMPARISON: . CLINICAL INDICATION:Female, 47 years old with history of Neuro deficit, acute, stroke suspected, NEUR O DEFICIT TECHNIQUE: Brain: Axial CT images of the brain were obtained with coronal and sagittal reformats created and rev iewed. Contrast used: None. Oral contrast used: None. FINDINGS: Brain: Extra-axial spaces: No abnormal extra-axial fluid collections. Ventricular system: There is effacement of the left lateral ventricle secondary to large intraparench ymal hemorrhage. Cerebral parenchyma: High-density pneumothorax are seen within the left frontal lobe that extended in to the left basal ganglia , left roblero radiata and extending down into the left middle cranial fossa /left temporal lobe. There is surrounding vasogenic edema with effacement of the sulci. The bleed pollo sures grossly 3.8 x 6.8 x 3.1 cm. The medrano-white junction is well differentiated. Cerebellum: Unremarkable. Mass effect: There is 8 mm rightward subfalcine herniation. Intracranial vasculature: unremarkable Soft tissues: Normal. Calvarium/osseous structures: No depressed skull fracture. Paranasal sinuses and mastoid air cells: Mild scattered paranasal sinus disease. Visualized orbits: Orbital contents are intact. IMPRESSION: Acute intraparenchymal hemorrhage involving the left frontal lobe extending down into the left tempor al lobe and left middle cranial fossa. There is at least 8 mm of rightward midline shift/subfalcine h erniation Findings communicated to Dr. Ronnell Pierre MD on 01/09/2023 10:[address] Sina Torrez.
[2023-01-09] MEDS ORDERED: TRANEXAMIC ACID IN NACL,ISO-OS 1,000 MG in SALINE 1 100ML.BAG IV STA (22:48)
[2023-01-09] MEDS ORDERED: TRANEXAMIC ACID 1,000 MG in SODIUM CHLORIDE 0.9% 250 ML IV ONE (22:48)
[2023-01-09 22:55] LABS: Lactic Acid, Venous 1.1 mmol/L (0.7-2.0)
[2023-01-09 23:00] LABS: ALT 13 U/L (4-34); AST 18 U/L (14-36); African American GFR (CKD) >90 (>60 ml/min/1.73 sqM); Albumin 4.1 g/dL (3.5-5.0); Alkaline Phosphatase 59 U/L (38-126); Anion Gap 12 mmol/L; Blood Urea Nitrogen 14 mg/dL (7-17); Calcium 8.7 mg/dL (8.4-10.2); Carbon Dioxide 19 mmol/L (22-30); Chloride 106 mmol/L (98-107); Creatine Kinase 31 U/L (30-135); Glucose 178 mg/dL (74-99); Non-African American GFR(CKD) >90 (>60 ml/min/1.73 sqM); Potassium 3.6 mmol/L (3.5-5.1); Sodium 137 mmol/L (137-145); Total Bilirubin 0.5 mg/dL (0.2-1.3); Total Protein 6.6 g/dL (6.3-8.2)
[2023-01-09 23:03] LABS: INR 0.9 (<1.2)
--- NOTE | 2023-01-09 23:04 | CT ---
EXAMINATION TYPE: CT angio head neck CT DLP: 611.4 mGycm, Automated exposure control for dose reduction was used. DATE OF EXAM: 01/09/2023 10:51 PM COMPARISON: CT brain same day. CLINICAL INDICATION:Female, 47 years old with history of Neuro deficit, acute, stroke suspected; , AM S, NEURO deficit TECHNIQUE: Axially acquired helical CT angiogram of the head and neck was obtained with contrast. Axi al images are supplemented with 3D reconstructions [facility] NASCET criteria used. Contrast used:65 mL of Isovue 370 with IV Contrast, Oral contrast used: None. FINDINGS: CTA HEAD: Intraparenchymal hemorrhage remains present as described on same day CT head. There is rightward subf alcine herniation present. No evidence of acute intracranial hemorrhage, mass effect, or midline shift. The ventricles, sulci, a nd cisterns are unremarkable. The visualized portions of the internal carotid arteries, middle cerebral arteries, anterior cerebral arteries, and posterior cerebral arteries are patent. The basilar and vertebral arteries are patent. CTA NECK: Right Carotid System: The common carotid artery and external carotid artery are patent. The carotid bifurcation demonstrate s no evidence of hemodynamically significant stenosis. The remaining portions of the internal carotid artery demonstrate normal size without significant narrowing. Left Carotid System: The common carotid artery and external carotid artery are patent. The carotid bifurcation demonstrate s no evidence of hemodynamically significant stenosis. The remaining portions of the internal carotid artery demonstrate normal size without significant narrowing. Vertebral arteries are patent without evidence hemodynamically significant stenosis. Left dominant ve rtebral artery. There is a three-vessel aortic arch. The origins of the great vessels are patent. No evidence of hemo dynamically significant stenosis. Upper thorax: No acute process visualized. IMPRESSION: 1. No evidence of dissection of the cervical internal carotid arteries or vertebral arteries or any e vidence of significant stenosis at the carotid bifurcations. 2. No evidence of intracranial high-grade stenosis or intracranial aneurysm. For findings regarding the intraparenchymal hemorrhage involving the left frontal lobe with rightward subfalcine herniation. Findings communicated to Dr. Ronnell Pierre MD on 01/09/2023 10:[address] Sina Torrez.
[2023-01-09 23:06] LABS: Partial Thromboplastin Time 21.4 sec (22.0-30.0)
--- NOTE | 2023-01-09 23:39 | XR ---
EXAMINATION TYPE: XR chest 1V DATE OF EXAM: 01/09/2023 11:10 PM COMPARISON: Chest radiographs from 01/09/2023 TECHNIQUE: XR chest 1V Frontal view of the chest. CLINICAL INDICATION:Female, 47 years old with history of post intubation; FINDINGS: Lungs/Pleura: There is no evidence of pleural effusion, focal consolidation, or pneumothorax. Pulmonary vascularity: Unremarkable. Heart/mediastinum: Cardiomediastinal silhouette is unremarkable. Musculoskeletal: No acute osseous pathology. Other findings: None Lines/Tubes: Endotracheal tube with distal tip 2.5 cm above the hiwot. Nasogastric tube is coiled within the gastric lumen. IMPRESSION: 1. No acute cardiopulmonary disease/process. 2. Endotracheal tube in appropriate position. 3. Nasogastric tube coiled within the gastric lumen, the tube could be retracted at least 14 cm for more optimal placement. [facility], 01/09/2023 11:10 PM, [id number], [id number], XR chest 1V
[2023-01-09 23:46] LABS: Appearance,Urine Clear (Clear); Bilirubin,Urine Negative (Negative); Blood,Urine Small (Negative); Color,Urine Light Yellow; Glucose,Urine (UA) Negative (Negative); Ketones,Urine 1+ (Negative); Leukocyte Esterase,Urine Negative (Negative); Mucus,Urine Rare /hpf; Nitrite,Urine Negative (Negative); Protein,Urine 1+ (Negative); RBC,Urine 22 /hpf (0-5); Squamous Epithelial Cell,Urine <1 /hpf (0-4); Urobilinogen,Urine <2.0 mg/dL (<2.0); WBC,Urine 3 /hpf (0-5)
[2023-01-09 23:48] LABS: Amphetamine Screen,Urine Not Detected (NotDetected); Barbiturate Screen,Urine Not Detected (NotDetected); Benzodiazepines Screen,Urine Not Detected (NotDetected); Cocaine Screen,Urine Not Detected (NotDetected); Methadone Screen, Urine Not Detected (NotDetected); Opiate Screen,Urine Not Detected (NotDetected); Oxycodone Screen, Urine Not Detected (NotDetected); Phencyclidine Screen,Urine Not Detected (NotDetected); Tricyclic Antidepressant,Urine Not Detected (NotDetected); Urn Cannabinoid Scrn Detected (NotDetected)
[2023-01-09 23:56] LABS: Specific Gravity,Urine >1.050 (1.001-1.035)
[2023-01-10] MEDS ORDERED: fentaNYL (PF) 50 MCG/ML 2 ML AMP IVP STA (00:07)
[2023-01-10] MEDS ORDERED: fentaNYL (PF). 1,000 MCG in SODIUM CHLORIDE 0.9% 80 ML IV SCH (00:15)
[2023-01-10 00:44] VITALS: BP 137/80; PULSE 73; RESP 16
== END 2023-01-10 00:50 | disposition other institution (70) ==
LOC: EC 22:12
DX: I62.9 Nontraumatic intracranial hemorrhage, unspecified (principal); Z87.891 Personal history of nicotine dependence; Z88.8 Allergy status to other drugs, medicaments and biological substances
CPT/HCPCS: 36415; 36600; 93005; 86900; 86901; 80053; 82140; 82550; 83605; 84484; 85025; 85610; 85730; 86850; 81001; 81025; 80306; 71045; 70496; 70450; 70498; 99291; 31500; 96365; 96367; 96375; J2150; J3010 ×2; J1953; J2704 ×2; Q9967